=== PATIENT | male | born 1945 | race Caucasian/White ===

== ENCOUNTER 2017-07-16 16:55 | Emergency (ER) | payer MEDICARE, BC ==
--- NOTE | 2017-07-16 19:07 | EDM.PDOC ---
ED HPI GENERAL MEDICAL PROBLEM - General Chief Complaint: Chest Pain Stated Complaint: HIGH BLOOD PRESSURE Time Seen by Provider: 07/16/17 16:58 Source of Information: Reports: Patient, RN Notes Reviewed - History of Present Illness INITIAL COMMENTS - FREE TEXT/NARRATIVE: 71 year old male with Htn, L sided chest discomfort. He has had mild pressure feeling L lateral chest for the last 5 days that he has had occasionally in the past. No anterior chest heaviness or tightness. No radiation to L shoulder or arm. No cough or difficulty breathing. Hx of Htn, took himself of his medication many months ago because it was making him cough. Not started on any other medication. He went to [facility] to have his BP checked today and it was very high, sent here for further eval. Ho hx CAD, does not smoke. Chest Pain Score (Numeric/FACES): 3 - Related Data Allergies Allergy/AdvReac Type Severity Reaction Status Date / Time No Known Allergies Allergy Verified 07/16/17 17:06 Past Medical History Cardiovascular History: Reports: High Cholesterol Gastrointestinal History: Reports: Other (See Below) Other Gastrointestinal History: high stomach acid Social & Family History - Tobacco Use Smoking Status *Q: Never Smoker - Recreational Drug Use Recreational Drug Use: No ED ROS GENERAL - Review of Systems Review Of Systems: See Below Constitutional: Denies: Fever, Chills, Diaphoresis HEENT: Denies: Throat Pain Respiratory: Denies: Shortness of Breath, Wheezing, Pleuritic Chest Pain Cardiovascular: Reports: Chest Pain (L lateral chest) GI/Abdominal: Denies: Abdominal Pain, Diarrhea, Nausea, Vomiting Musculoskeletal: Denies: Neck Pain, Shoulder Pain, Arm Pain, Back Pain Skin: Reports: No Symptoms Neurological: Denies: Numbness, Tingling, Trouble Speaking, Difficulty Walking, Weakness ED EXAM, GENERAL - Physical Exam Exam: See Below General Appearance: Alert, Anxious (mild) Eye Exam: Bilateral Eye: PERRL Throat/Mouth: Normal Inspection, Normal Oropharynx Head: Atraumatic Neck: Supple, Full Range of Motion Respiratory/Chest: No Respiratory Distress, Lungs Clear, Normal Breath Sounds Cardiovascular: Regular Rate, Rhythm, Other (chest wall nontender) GI/Abdominal: Soft, Non-Tender, No Mass. No: Guarding, Rebound Back Exam: No: CVA Tenderness (L), CVA Tenderness (R) Extremities: Normal Inspection. No: Pedal Edema, Leg Pain Neurological: Alert, Oriented, No Motor/Sensory Deficits Skin Exam: Warm, Dry (d), Normal Color Course - Vital Signs Last Recorded V/S: Last Vital Signs Temp 98.3 F 07/16/17 17:06 Pulse 64 07/16/17 19:32 Resp 18 07/16/17 17:06 BP 174/113 H 07/16/17 19:32 Pulse Ox 97 07/16/17 17:06 - Orders/Labs/Meds Orders: Active Orders 24 hr Category Date Time Status EKG 12 Lead [EKG Documentation Completion] [RC] STAT Care 07/16/17 17:22 Active Labs: Laboratory Tests 07/16/17 07/16/17 Range/Units 17:18 17:18 WBC 5.10 (4.23-9.07) K/mm3 RBC 4.34 L (4.63-6.08) M/mm3 Hgb 13.7 (13.7-17.5) gm/L Hct 40.2 (40.1-51.0) % MCV 92.6 H (79.0-92.2) fl MCH 31.6 (25.7-32.2) pg MCHC 34.1 (32.2-35.5) g/dl RDW Std Deviation 44.6 H (35.1-43.9) fL Plt Count 242 (163-337) K/mm3 MPV 10.3 (9.4-12.3) fl Neut % (Auto) 56.3 (34.0-67.9) % Lymph % (Auto) 28.8 (21.8-53.1) % [place] % (Auto) 9.4 (5.3-12.2) % Eos % (Auto) 4.5 (0.8-7.0) Baso % (Auto) 0.8 (0.1-1.2) % Neut # (Auto) 2.87 (1.78-5.38) K/mm3 Lymph # (Auto) 1.47 (1.32-3.57) K/mm3 [place] # (Auto) 0.48 (0.30-0.82) K/mm3 Eos # (Auto) 0.23 (0.04-0.54) K/mm3 Baso # (Auto) 0.04 (0.01-0.08) K/mm3 Sodium 142 (136-145) mEq/L Potassium 3.8 (3.5-5.1) mEq/L Chloride 107 (98-107) mEq/L Carbon Dioxide 24 (21-32) mEq/L Anion Gap 14.8 (5-15) BUN 23 H (7-18) mg/dL Creatinine 1.3 (0.7-1.3) mg/dL Est Cr Clr Drug Dosing 61.39 mL/min Estimated GFR (MDRD) 54 (>60) mL/min BUN/Creatinine Ratio 17.7 (14-18) Glucose 141 H (83-115) mg/dL Calcium 8.7 (8.5-10.1) mg/dL Total Bilirubin 0.4 (0.2-1.0) mg/dL AST 21 (15-37) U/L ALT 27 (16-63) U/L Alkaline Phosphatase 87 (46-116) U/L Troponin I < 0.017 (0.00-0.056) ng/mL Total Protein 7.2 (6.4-8.2) g/dl Albumin 3.6 (3.4-5.0) g/dl Globulin 3.6 gm/dL Albumin/Globulin Ratio 1.0 (1-2) Meds: Medications Discontinued Medications Generic Name Dose Route Start Last Admin Trade Name Freq PRN Reason Stop Dose Admin Metoprolol Tartrate 50 mg 07/16/17 19:23 07/16/17 19:32 Lopressor PO 07/16/17 19:24 50 mg ONETIME ONE Administration - Re-Assessments/Exams Free Text/Narrative Re-Assessment/Exam: 07/16/17 21:20. BP did trend down for admission, EKG, trop, labs normal. Was going to send home to moniter BP, BP at time of discharge much more elevated from prior readings at 170/111 times 2. Given metropolol 50 mg PO and than to go home on 25 BID. Departure - Departure Time of Disposition: 19:04 Disposition: Home, Self-Care 01 Condition: Fair Clinical Impression: Atypical chest pain Hypertension Qualifiers: Hypertension type: essential hypertension Qualified Code(s): I10 - Essential ( primary) hypertension Instructions: Heart-Healthy Eating Plan, [id number], Nonspecific Chest Pain, [id number], Hypertension Referrals: August,Randall W, MD [Primary Care Provider] - Forms: ED Department Discharge Additional Instructions: Try get your BP checked a couple of times for a few days and than once daily after that as best you can until you see Dr Koch. Bring record of those readings for you next clinic visit for review. Try take melatonin along with the ambien at night, see if that helps you sleep. If that does not help than visit with Dr Koch about sleep study test, CPAP if indicated. Return to ED as needed if sx worsening in any way. Because of your blood pressure going back up at time of discharge you have been given metropolol 50 mg here in the ED, continue 25 mg twice daily until you see Dr Koch. - My Orders Last 24 Hours: My Active Orders 07/16/17 17:22 EKG 12 Lead [EKG Documentation Completion] [RC] STAT - Assessment/Plan Last 24 Hours: My Active Orders 07/16/17 17:22 EKG 12 Lead [EKG Documentation Completion] [RC] STAT
[2017-07-16] MEDS ORDERED: Metoprolol Tartrate 50 MG Tab PO ONE (19:23)
== END 2017-07-16 19:45 | disposition home or self-care (01) ==
LOC: JD.ED 16:55
DX: I10 Essential (primary) hypertension (principal); R07.89 Other chest pain; E78.00 Pure hypercholesterolemia, unspecified
CPT/HCPCS: 36415; 80053; 84484; 85025; 93005; 99284; A9270; 99283

== ENCOUNTER 2022-04-24 16:42 | Emergency (ER) | payer MEDICARE, BC | END 2022-04-24 17:16 | disposition left against medical advice (07) | LOC: JD.ED 16:42 | DX: Z53.21 Procedure and treatment not carried out due to patient leaving prior to being seen by health care provider (principal) ==

== ENCOUNTER 2025-03-18 06:45 | Day surgery (SDC) | payer MEDICARE ==
[2025-03-18] MEDS: Lactated Ringers 1,000 ML IV SCH (06:30)
[~2025-03-18 06:45] MED LIST: Dexamethasone 4 MG/ML 5 ML MDV ONE; EPINEPHrine 1 MG/ML SDV ONE; Ondansetron 4 MG/2 ML SDV ONE; Ropivacaine 0.5% 5 MG/ML 30 ML SDV ONE; dexmedeTOMIDine HCl 200 MCG/2 ML SDV ONE; fentaNYL 100 MCG/2 ML SDV ONE; propofoL 500 MG/50 ML 50 ML ONE
[2025-03-18] MEDS ORDERED: Sodium Chloride 0.9% 10 ML Syringe FLUSH PRN (07:03)
[2025-03-18] MEDS ORDERED: Midazolam 1 MG/ML 2 ML SDV ONE (07:04)
[2025-03-18] MEDS ORDERED: ePHEDrine 50 MG/ML SDV ONE (07:54)
[2025-03-18] MEDS ORDERED: Lactated Ringers 1,000 ML ONE (08:27)
[2025-03-18] MEDS: Morphine 8 MG, EPINEPHrine 0.3 MG, Cefuroxime 750 MG, Ketorolac 30 MG, Sodium Chloride ... PRN (08:37)
[2025-03-18] MEDS ORDERED: Sodium Chloride 0.9% 10 ML Syringe FLUSH SCH (09:00)
[2025-03-18] MEDS ORDERED: Ondansetron 4 MG/2 ML SDV IVPUSH PRN (09:18)
[2025-03-18] MEDS: fentaNYL 100 MCG/2 ML SDV IVPUSH PRN (09:25)
[2025-03-18] MEDS: Acetaminophen/HYDROcodone 325-5 MG Tab PO PRN (11:30)
== END 2025-03-18 13:45 | disposition home or self-care (01) ==
LOC: JD.SDS 06:45
PROVIDERS: ATTEND Orthopaedic Surgery
DX: M17.11 Unilateral primary osteoarthritis, right knee (principal); I10 Essential (primary) hypertension; I48.0 Paroxysmal atrial fibrillation; K21.9 Gastro-esophageal reflux disease without esophagitis; E78.5 Hyperlipidemia, unspecified; Z79.01 Long term (current) use of anticoagulants; Z87.891 Personal history of nicotine dependence; Z79.899 Other long term (current) drug therapy
CPT/HCPCS: 0055T; 27447; 64447; 73560; 97116; 97161; A9270; J0169; J0690; J0697; J1100; J1885; J2250; J2272; J2405; J2704; J2795; J3010; J3373; J7120; C1713; C1776; J3490